=== PATIENT | male | born 1945 | race Caucasian/White ===

== ENCOUNTER → 2016-09-17 | Outpatient (CLI) | payer OTHER ==
--- NOTE | ~2016-09-17 | 2DMMODE ---
[facility] [place] [address] 2 D/M-MODE ECHOCARDIOGRAM Name: TUAN RUIZ Room #: [facility] [id number] Admission: 09/17/16 Attend Phys: Harvinder Camarillo MD Discharge: Date of : 49 Date of Service: 09/17/16 1500 Report #: [id number] THIS REPORT FOR: //name// Transthoracic Echocardiography Ordering physician: Harvinder Camarillo MD Referring physician: Dario Duong MD Corporate Travel Expert: JONY Acevedo Indications/History: Atrial fibrillation, HTN, HLP. BP: 134 / HR: 57bpm Height: 71in Weight: 169.6lb 72 Study data: M-mode, complete 2D, complete spectral Doppler, and color Doppler. Location: Echo laboratory. Routine. Image quality was adequate. 2D measurements Normal Normal LVID ED 47mm 36-57 IVS ED 9.5mm 6-11 LVID ES 31.9mm 23-40 LVPW ED 10.9mm 6-11 LA volume 22ml/m2 16-28 AoRoot diam 33mm 21-37 index ED LVOT diameter 20mm 18-23 Findings: Left ventricle: The cavity size was normal. Wall thickness was normal. Systolic function was normal. The estimated ejection fraction was in the range of 55% to 60%. Wall motion was normal. Right ventricle: The cavity size was normal. Systolic function was normal. Right atrium: The atrium was mildly dilated. Left atrium: The atrium was normal in size. Volume index: 22ml/m2 (S). Aortic valve: Structurally normal valve. Trileaflet. Doppler: There was no stenosis. No regurgitation. Peak velocity: 113.7cm/s (S). [facility] [email or web address] [address] 2 D/M-MODE ECHOCARDIOGRAM Name: TUAN RUIZ Room #: REG M.R.#: [id number] Admission: 09/17/16 Attend Phys: Harvinder Camarillo MD Discharge: Date of : 49 Date of Service: 09/17/16 1500 Report #: [id number] Mitral valve: Structurally normal valve. Doppler: There was no evidence for stenosis. Trivial regurgitation. Peak E-wave velocity: 90.2cm/s. Peak gradient: 3.3mm Hg (D). Peak A-wave velocity: 93.9cm/s. Tricuspid valve: Structurally normal valve. Doppler: There was no evidence for stenosis. Trivial regurgitation. Regurgitant peak velocity: 204cm/s. Peak RV-RA gradient: 17mm Hg (S). Pulmonic valve: Structurally normal valve. Doppler: There was no evidence for stenosis. No regurgitation. Pericardium: There was no pericardial effusion. Aorta: Aortic root: The aortic root was normal in size. Pulmonary artery: Systolic pressure was estimated to be 22mm Hg. Diastolic function: Left ventricular diastolic function parameters were normal for the patient's age. Systemic veins: Inferior vena cava: The vessel was normal in size; the respirophasic diameter changes were in the normal range (= 50%). Conclusions 1. Left ventricle: The cavity size was normal. Wall thickness was normal. Systolic function was normal. The estimated ejection fraction was in the range of 55% to 60%. 2. Right atrium: The atrium was mildly dilated. 3. Left atrium: The atrium was normal in size. 4. Aortic valve: Structurally normal valve. Trileaflet. There was no stenosis. 5. Mitral valve: Trivial regurgitation. 6. Tricuspid valve: Trivial regurgitation. 7. Pericardium, extracardiac: There was no pericardial effusion. <ELECTRONICALLY SIGNED> By: Harvinder Camarillo MD 09/17/16 1613 1500 12 Harvinder Camarillo MD /adrianne
== END ==
LOC: CV 08:57
DX: I48.91 Unspecified atrial fibrillation (principal); I10 Essential (primary) hypertension; E78.5 Hyperlipidemia, unspecified

== ENCOUNTER → 2018-03-17 | Outpatient (CLI) | payer OTHER | LOC: NUC 06:55 | DX: I48.91 Unspecified atrial fibrillation (principal); I10 Essential (primary) hypertension; E78.5 Hyperlipidemia, unspecified; E78.00 Pure hypercholesterolemia, unspecified; Z87.891 Personal history of nicotine dependence ==

== ENCOUNTER → 2018-03-22 | Outpatient (CLI) | payer OTHER ==
[~2018-03-22] VITALS: Ht 180.3 cm; Wt 77.1 kg
[~2018-03-22] MED LIST: AMLODIPINE BESY10 MG PO; ASPIR 8181 MG PO; ATORVASTATIN CA40 MG PO; ELIQUIS5 MG PO; METOPROLOL SUCC50 MG PO
--- NOTE | ~2018-03-22 | EKG ---
[address] [place] [address] ELECTROCARDIOGRAM REPORT Name: TUAN RUIZ [id number] Admission: 03/22/18 Attend Phys: Harvinder Camarillo MD Discharge: Date of : 49 Report #: [id number] THIS REPORT FOR: //name// [facility] Test Date: 2018-03-22 Test Time: 07:07:39 Pat Name: TUAN RUIZ Department: Room: Gender: M Outbound Sales Agent: : [id number] Requested By: Harvinder Camarillo Order Number: [id number] MD: Kamari Cox Measurements Intervals Tok Rate: 67 P: NH: QRS: -1 QRSD: 103 T: 51 QT: 386 QTc: 408 Interpretive Statements Atrial fibrillation Low voltage, extremity leads Poor R wave progression No previous ECG available for comparison Electronically Signed On 03-22-2018 8:41:20 CDT by Kamari Cox [email or web address] <ELECTRONICALLY SIGNED> By: Kamari Cox MD, [facility] 03/22/18 0841 [phone] Kamari Cox MD, FAC /EPI
--- NOTE | ~2018-03-22 | CATHLAB ---
[facility] [address] [place] [address] INVASIVE PROCEDURE REPORT Name: TUAN RUIZ Room #: REG [facility]#: [id number] Admission: 03/22/18 Attend Phys: Harvinder Camarillo MD Discharge: Date of : 49 Date of Service: 03/22/18 1428 Report #: [id number] THIS REPORT FOR: //name// APPROVED REPORT Study performed: 03/22/2018 08:03:37 Patient Details Patient Status: Out-Patient Room #: The patient is a 72 year-old male Event Personnel Harvinder Camarillo Erp Business Analyst, Rios Doherty RN, Mike Ruvalcaba RN RN, Pat Byers Sandifer, David Monitor Procedures Performed Art Access - R radial artery Left Heart Cath w/or w/o Coronaries [id number] [facility] [address] Initial Mod Sed Same Phys/QHP Gr5y [id number] 03443 Mod Sed Same Phys/QHP Ea [id number] Indication Dyspnea, Positive stress test Risk Factors Hypercholesterolemia, Hypertension Procedure Narrative The patient was brought electively to the Cardiac Catheterization Laboratory and was prepped and draped in a sterile manner. The Right Wrist^ was infiltrated with 1% Lidocaine subcutaneous anesthesia. A TRANSRADIAL SLENDER 6F GLIDESHEATH KIT #[id number] sheath was inserted into the Right Radial Artery^. Coronary angiography was performed using coronary diagnostic catheters. The right coronary system was accessed and visualized with a JR 4 catheter. The left coronary system was accessed and visualized with a JL 3.5 catheter. The left ventricle was accessed and visualized with a Pigtail catheter. Left ventricular/Aortic Valve gradient assessed via catheter pullback. Left ventriculogram was performed in CABRAL projection. Closure device was deployed with a Fr VASC BAND R 24CM #[id number]. The patient tolerated the procedure well and there were no complications associated with the procedure. There was no hematoma. Intraoperative Conscious Sedation Sedation start time: 08:12 Case end Time: 08:39 [facility] [address] [place] [address] INVASIVE PROCEDURE REPORT Name: TUAN RUIZ Room #: REG [facility]#: [id number] Admission: 03/22/18 Attend Phys: Harvinder Camarillo MD Discharge: Date of : 49 Date of Service: 03/22/18 1428 Report #: [id number] Fentanyl 50 mcg Versed 1.5 mg Fluoro Time: 3.10 minutes Dose: DAP 2741.60 cGycm2 322 mGy Contrast Type and Amount: Omnipaque 80 ml Coronary Angiography The patient's coronary anatomy is right dominant. Diagnostic Cath Left Main Patent vessel, with flow-limiting lesions. LAD There is a severe bifurcating stenosis involving the proximal LAD and first diagonal artery. Diagonal 1 Severe ostial stenosis. Circumflex Supplies 3 small OM vessels. Right Coronary Dominant vessel supplies a PDA and several RPL branches. There are consecutive severe stenoses involving the proximal RCA, with areas of ectasia. R PDA Patent vessel, with no flow-limiting lesions. RPLV Patent vessel, with no flow-limiting lesions. Left Ventriculography The left ventricle is normal in size with normal contractility. The left ventricular ejection fraction is estimated to be 50-55%. Hemodynamics The aortic pressure is 77/50 mmHg with a mean of 61 mmHg. The left ventricular pressure is 115/2 mmHg with a mean of mmHg. The left ventricular end diastolic pressure is 18 mmHg. Conclusion 1. Severe, multivessel coronary artery disease. 2. Right dominant system. 3. Normal LV systolic function. 4. Recommend CV consultation. <ELECTRONICALLY SIGNED> By: Harvinder Camarillo MD 03/22/18 1428 1428 1428 Harvinder Camarillo MD /INF
[2018-03-22 07:03] VITALS: BP 140/74
[2018-03-22 07:26] LABS: HEMATOCRIT 41.6 % (42.0-52.0); HEMOGLOBIN 14.5 gm/dL (14.0-18.0); MCH 33.5 pg (26.0-34.0); MCHC 34.8 g/dL (28.0-37.0); MCV 96.3 fL (80.0-100.0); RBC 4.33 mil/uL (4.50-6.00); RDW 13.5 % (10.5-14.5); WBC 7.7 thou/uL (4.0-11.0)
[2018-03-22 07:48] LABS: CALCIUM 9.1 mg/dL (8.5-10.1); CREATININE 1.2 mg/dL (0.7-1.3); POTASSIUM 4.3 mmol/L (3.5-5.1)
== END | disposition home or self-care (01) ==
LOC: CATH 06:19
PROVIDERS: Internal Medicine Cardiovascular Disease
DX: I25.10 Atherosclerotic heart disease of native coronary artery without angina pectoris (principal); I10 Essential (primary) hypertension; E78.00 Pure hypercholesterolemia, unspecified; I48.91 Unspecified atrial fibrillation; Z85.828 Personal history of other malignant neoplasm of skin; Z98.890 Other specified postprocedural states; Z79.899 Other long term (current) drug therapy; Z79.01 Long term (current) use of anticoagulants; Z87.891 Personal history of nicotine dependence; Z79.82 Long term (current) use of aspirin

== ENCOUNTER → 2018-12-19 | Outpatient (CLI) | payer OTHER ==
--- NOTE | 2018-12-19 09:38 | 2DMMODE ---
[facility] [employer] [place] [address] 2 D/M-MODE ECHOCARDIOGRAM Name: TUAN RUIZ HUEY Room #: REG [facility]#: [id number] ������������� Admission: 12/19/18 ������������� Attend Phys: Harvinder Camarillo MD Discharge: ��� ������������� ��� Date of : 49 Date of Service: 12/19/18 0938 �� Report #: [id number] �������� ��������������������������������������������[id number] THIS REPORT FOR: //name// APPROVED REPORT Study performed: 12/19/2018 08:44:55 EXAM: Comprehensive 2D, Doppler, and color-flow Echocardiogram Patient Location: Out-Patient Status: routine BSA: 1.97 HR: 71 bpm BP: 138/74 mmHg Rhythm: NSR Other Information Study Quality: Good Indications Atrial Fibrillation Hypertension/HDD 2D Dimensions RVDd: 33.74 mm IVSd: 11.38 (7-11mm) LVOT Diam: 23.66 (18-24mm) LVDd: 46.17 mm PWd: 10.76 (7-11mm) Ascending Ao: 28.13 (22-36mm) LVDs: 31.89 (25-40mm) Aortic Root: 31.61 mm IVC: 12.00 mm Volumes Left Atrial Volume (Systole) Single Plane 4CH: 38.57 mL Single Plane 2CH: 53.97 mL LA ESV Index: 25.00 mL/m2 Aortic Valve AoV Peak Phoenix.: 1.30 m/s AO Peak Gr.: 6.80 mmHg LVOT Max P.57 mmHg LVOT Max V: 0.94 m/s EDILSON Vmax: 3.18 cm2 Mitral Valve E/A Ratio: 2.1 MV Decel. Time: 231.95 ms [facility] [address] [place] [address] 2 D/M-MODE ECHOCARDIOGRAM Name: TUAN RUIZ Room #: REG [facility]#: [id number] ������������� Admission: 12/19/18 ������������� Attend Phys: Harvinder Camarillo MD Discharge: ��� ������������� ��� Date of : 49 Date of Service: 12/19/18 0938 �� Report #: [id number] �������� ��������������������������������������������[id number] MV E Max Phoenix.: 1.04 m/s MV A Phoenix.: 0.49 m/s MV PHT: 67.27 ms IVRT: 78.43 ms Pulmonary Valve PV Peak Phoenix.: 0.80 m/s PV Peak Gr.: 2.57 mmHg Pulmonary Vein P Vein S: 0.57 m/s P Vein A: 0.19 m/s P Vein D: 0.53 m/s P Vein A Dur.: 106.1 msec P Vein S/D Ratio: 1.08 Left Ventricle The left ventricle is normal size. There is normal LV segmental wall motion. There is normal left ventricular wall thickness. Left ventricular systolic function is normal. The left ventricular ejection fraction is within the normal range. LVEF is 55-60%. Right Ventricle The right ventricle is normal size. The right ventricular systolic function is normal. Atria The left atrium size is normal. The right atrium size is normal. Aortic Valve The aortic valve is normal in structure. No aortic regurgitation is present. There is no aortic valvular stenosis. Mitral Valve The mitral valve is normal in structure. Trace mitral regurgitation. No evidence of mitral valve stenosis. Tricuspid Valve The tricuspid valve is normal in structure. There is no tricuspid valve regurgitation noted. Pulmonic Valve The pulmonary valve is normal in structure. There is no pulmonic valvular regurgitation. Great Vessels The aortic root is normal in size. IVC is normal in size and collapses >50% with inspiration. [facility] [address] [place] [address] 2 D/M-MODE ECHOCARDIOGRAM Name: TUAN RUIZ Room #: REG [facility]#: [id number] ������������� Admission: 12/19/18 ������������� Attend Phys: Harvinder Camarillo MD Discharge: ��� ������������� ��� Date of : 49 Date of Service: 12/19/18 0938 �� Report #: [id number] �������� ��������������������������������������������[id number] Pericardium There is no pericardial effusion. <Conclusion> The left ventricle is normal size. There is normal left ventricular wall thickness. Left ventricular systolic function is normal. The right ventricle is normal size. The left atrium size is normal. The aortic valve is normal in structure. Trace mitral regurgitation. There is no tricuspid valve regurgitation noted. ��������������������������������������������� <ELECTRONICALLY SIGNED> ���������������������������������������� By: Harvinder Camarillo MD ��������������������������������������������� 12/19/18937 7 7 Harvinder Camarillo MD /INF
== END ==
LOC: CV 08:23
DX: I48.91 Unspecified atrial fibrillation (principal); I10 Essential (primary) hypertension